=== PATIENT | male | born 1995 ===

== ENCOUNTER 2018-07-23 13:56 | Emergency (ER) | payer OTHER ==
[~2018-07-23] VITALS: Ht 182.9 cm; Wt 86.2 kg
[2018-07-23] MEDS ORDERED: ROBITUSSIN COU237 ML PO (15:46)
[2018-07-23] MEDS ORDERED: DICL75ER PO (15:46)
== END 2018-07-23 16:08 | disposition home or self-care (01) ==
LOC: ER 13:56
DX: M94.0 Chondrocostal junction syndrome [Tietze] (principal)
CPT/HCPCS: 71046; 99283-25